=== PATIENT | female | born 1940 | race Caucasian/White ===

== ENCOUNTER 2017-01-26 22:30 | Emergency (ER) | payer MEDICARE, BC ==
[2017-01-26 22:42] VITALS: BP 165/68
[2017-01-26] MEDS ORDERED: Ondansetron 4 MG Tab.DIS PO ONE (23:20)
[2017-01-26] MEDS ORDERED: LORazepam 1 MG Tab PO ONE (23:20)
--- NOTE | 2017-01-26 23:20 | EDM.PDOC ---
ED HPI ALTERED MENTAL STATUS - General Chief Complaint: Neurological Problem Stated Complaint: DIZZY HEADACHE FAST HEART BEAT Time Seen by Provider: 01/26/17 23:12 Source of Information: Reports: Patient History Limitations: Reports: No limitations - History of Present Illness INITIAL COMMENTS - FREE TEXT/NARRATIVE: 76-year-old female attended the ED because she feels quite antsy and jittery inside with reported headache palpitations and slight nausea. Patient takes Ativan usually a half a tablet in the morning and half a tablet at noon and a full tablet at bedtime to aid sleep. She has been using this chronically for many months. She has chronic pain syndrome with pain in her neck and back with previous surgeries to these area. She ran out of Ativan yesterday. Her prescription was supposed to be flown to [facility] but apparently something happened and she was not able to get it filled. She therefore is feeling quite antsy at this time. She complained of palpitations pedal monitor shows heart rate of 56 per minute and sinus. Lungs were clear. She reports she does feel anxious inside and is not able to sleep. She did take a hydrocodone tablet twice today for back pain and this helped the pain but it has not helped her relax enough to sleep. Baseline Mental Status: Reports: alert/oriented Symptom Onset Date: 01/26/17 Symptom Onset Time: 18:00 Timing/Duration: Reports: Hour(s):, Gradual onset Context: Reports: change medication regime. 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: oxygen, IV, narcan, tylenol - Related Data Allergies/ADRs: Allergies Sulfa (Sulfonamide Antibiotics) Allergy (Verified 01/26/17 22:38) Hives Home Meds: Home Meds Acetaminophen [Tylenol] 650 mg PO Q6HR PRN 12/06/14 [History] Estradiol [Vagifem] 10 mcg PO ASDIRECTED 12/06/14 [History] Gabapentin [Neurontin] 600 mg PO BEDTIME 12/06/14 [History] LORazepam 1 mg PO TID 12/06/14 [History] Levothyroxine 75 mcg PO DAILY 12/06/14 [History] Multivitamin [Multivitamins] 1 tab PO DAILY 12/06/14 [History] Simvastatin [Zocor] 10 mg PO DAILY 12/06/14 [History] Ubidecarenone [Co Q-10] 300 mg PO DAILY 12/06/14 [History] Denosumab [Prolia] 60 mg SUBCUT ASDIRECTED 06/01/16 [History] Docusate Sodium [Colace] 100 mg PO DAILY 06/01/16 [History] Erythromycin Base [Erythromycin 0.5% Ophth Oint] 1 dose EYEBOTH BEDTIME [History] Gabapentin [Neurontin] 100 mg PO BEDTIME 06/01/16 [History] Glycerin/Propylene Glycol [Lubricant Eye Drops] 1 drop EYEBOTH ASDIRECTED PRN [History] L.acidoph,Paracasei, B.lactis [Probiotic] 1 each PO DAILY 06/01/16 [History] Meclizine HCl [Antivert] 12.5 mg PO Q12HR PRN #20 tablet 06/01/16 [Rx] Menthol [Icy Hot] 1 spray TOP ASDIRECTED PRN 06/01/16 [History] Non-Formulary Medication [NF Drug] 1 tab PO DAILY 06/01/16 [History] Omeprazole 20 mg PO DAILY 06/01/16 [History] Polyethylene Glycol 3350 [MiraLAX] 17 gm PO DAILY PRN 06/01/16 [History] Sennosides/Docusate Sodium [Senna S Tablet] 1 tab PO BID PRN 06/01/16 [History] rOPINIRole [Requip] 2 mg PO BEDTIME 06/01/16 [History] LORazepam [Ativan] 1 mg PO TID PRN #6 tablet 01/26/17 [Rx] Past Medical History HEENT History: Reports: Cataract, Other (see below) Other HEENT History: dry eyes, eye infections Cardiovascular History: Reports: High cholesterol Gastrointestinal History: Reports: Chronic constipation, Chronic diarrhea Genitourinary History: Reports: Other (see below) Other Genitourinary History: stress incontinence 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 History: Reports: Endometriosis Musculoskeletal History: Reports: Back pain, chronic Neurological History: Reports: Neuropathy, peripheral Psychiatric History: Reports: Anxiety Endocrine/Metabolic History: Reports: Hypothyroidism - Past Surgical History HEENT Surgical History: Reports: Cataract surgery Female Surgical History: Reports: Hysterectomy Neurological Surgical History: Reports: C-Spine (Fusion.), Lumbar spine ( Laminectomy and discectomy.) Social & Family History - Family History Family Medical History: Noncontributory - Tobacco Use Smoking Status *Q: Former Smoker Used Tobacco, but Quit: No Second Hand Smoke Exposure: No - Alcohol Use Days Per Week of Alcohol Use: 0 - Recreational Drug Use Recreational Drug Use: No - Living Situation & Occupation Living situation: Reports: , alone Occupation: retired ED ROS GENERAL - Review of Systems Review Of Systems: See Below Constitutional: Reports: malaise, weakness, fatigue, decreased appetite. Denies : fever, chills, weight loss HEENT: Reports: No symptoms Respiratory: Reports: No Symptoms Cardiovascular: Reports: Palpitations Endocrine: Reports: no symptoms GI/Abdominal: Reports: Constipation, Nausea (Mild at this time). Denies: Abdominal pain : Reports: frequency Musculoskeletal: Reports: neck pain (Chronic neck pain), shoulder pain (Lumbar spine pain with no radiculopathy. Occasionally.), back pain Skin: Reports: no symptoms Neurological: Reports: Headache. Denies: Difficulty Walking, Change in Speech, Gait Disturbance Psychiatric: Reports: Agitation, Anxiety, Depression. Denies: Cravings, Hallucinations (Mild), Homicidal ideation, Mood lability, Suicidal ideation Hematologic/Lymphatic: Reports: no symptoms (Chronically) Immunologic: Reports: no symptoms - Physical Exam Exam: See Below Exam Limited By: No limitations General Appearance: alert, no apparent distress, anxious (Mild at this time) Eye Exam: bilateral eye: normal inspection Throat/Mouth: Normal inspection, Normal lips, Normal oropharynx Head Exam: atraumatic, normocephalic Neck: normal inspection, limited range of motion, tender midline, other (Well healed cervical neck surgical wound.). No: full range of motion, lymphadenopathy (L), lymphadenopathy (R) Respiratory/Chest: lungs clear (Mild tachypnea), normal breath sounds, no accessory muscle use, chest non-tender, respiratory distress Cardiovascular: normal peripheral pulses, regular rate, rhythm (56-58 per minute ), no edema, no gallop, no murmur, bradycardia GI/Abdominal: soft, non tender, no organomegaly, distended (Mildly distended and tympanitic to percussion. Mild aerophagia.) Neuro Exam (Abbreviated): alert, oriented, CN II-XII intact, normal cognition, no motor/sensory deficits Back Exam: paraspinal tenderness (Bilaterally adjacent to L3-4 and 5 facets), other (Has a well-healed scar over the mid lumbar spine.) Extremities: normal inspection, normal range of motion, non-tender, no pedal edema Psychiatric: normal affect, anxious Skin Exam: Warm, Dry, Intact, Normal color, No rash Course - Vital Signs Last Recorded V/S: Last Vital Signs Temp 36.4 C 01/26/17 22:38 Pulse 58 L 01/26/17 22:38 Resp 20 01/26/17 22:38 BP 165/68 H 01/26/17 22:38 Pulse Ox 97 01/26/17 22:38 - Orders/Labs/Meds Meds: Medications Discontinued Medications Generic Name Dose Route Start Last Admin Trade Name Freq PRN Reason Stop Dose Admin Lorazepam 1 mg 01/26/17 23:20 01/26/17 23:26 Ativan PO 01/26/17 23:21 1 mg ONETIME ONE Administration Ondansetron HCl 4 mg 01/26/17 23:20 01/26/17 23:26 Zofran Odt PO 01/26/17 23:21 4 mg ONETIME ONE Administration - Radiology Interpretation Free Text/Narrative:: 76-year-old female attends ED with nonspecific symptoms of headache and feeling quite anxious and that she's experiencing rapid irregular heartbeat. On exam she was found to be in sinus bradycardia at 56 per minute. Mild tachypnea lungs are clear however. Blood pressure is mildly elevated. It history reveals that she ran out of Ativan yesterday and she's been using this chronically for many years. Usually takes anywhere between a half and of milligram in the morning and can't known and full tablet at bedtime to aid sleep. Last level was 24 hours ago. Examination reveals no significant pathology. Suspect current symptoms are that of Ativan withdrawal. Plan Zofran 4 mg sublingually to relieve her nausea and Ativan a milligram per oral. Give her a prescription for 6 tablets in case she cannot get her normal prescription filled tomorrow for white from pharmacy as planned last. Departure - Departure Time of Disposition: 23:26 Disposition: Home, Self-Care 01 Condition: fair Clinical Impression: Benzodiazepine withdrawal Qualifiers: Complication of substance-induced condition: uncomplicated Qualified Code(s): F13.230 - Sedative, hypnotic or anxiolytic dependence with withdrawal, uncomplicated Prescriptions: LORazepam [Ativan] 1 mg PO TID PRN #6 tablet PRN Reason: Anxiety relief Instructions: Benzodiazepine Withdrawal Referrals: Hoang Paez MD [Primary Care Provider] - Forms: ED Department Discharge Additional Instructions: Evaluation in the emergency him tonight in regards to generalized sense of illness with palpitations headache and back discomfort both between the shoulder blades and low back. Feeling very jittery and anxious. History of chronic use of Ativan for control of anxiety disorder and ran out of medicine yesterday. This therefore in 24 hours since last Ativan was taken. No palpitations were identified on monitor in fact heart rate is in the 36-60 range which is normal. Blood pressure itself is also within normal limits. Lungs are clear. Symptoms appear to be that of early withdrawal from benzodiazepines or Ativan. Treatment was therefore Ativan 1 mg given in the ED per oral and Zofran 4 mg for nausea relief. Most trouble home to bed before the medicine starts to work. I did write a prescription for 6 Ativan tablets and tissue do not get your normal prescription filled tomorrow as planned.
== END 2017-01-26 23:50 | disposition home or self-care (01) ==
LOC: JD.ED 22:30
DX: F13.230 Sedative, hypnotic or anxiolytic dependence with withdrawal, uncomplicated (principal); E78.00 Pure hypercholesterolemia, unspecified; F41.9 Anxiety disorder, unspecified; E03.9 Hypothyroidism, unspecified; Z88.2 Allergy status to sulfonamides; Z79.899 Other long term (current) drug therapy; Z90.710 Acquired absence of both cervix and uterus; Z87.891 Personal history of nicotine dependence
CPT/HCPCS: 99284; A9270; 99283

== ENCOUNTER 2020-04-20 17:48 | Emergency (ER) | payer MEDICARE, BC ==
[2020-04-20 18:24] VITALS: BP 149/73; PULSE 60
--- NOTE | 2020-04-20 19:36 | EDM.PDOC ---
ED HPI GENERAL MEDICAL PROBLEM - General Chief Complaint: Gastrointestinal Problem Stated Complaint: DIARRHEA, NO APPETITE AND FATIGUE Time Seen by Provider: 04/20/20 18:55 Source of Information: Reports: Patient History Limitations: Reports: No Limitations - History of Present Illness INITIAL COMMENTS - FREE TEXT/NARRATIVE: Ms. Waggoner is a 80-year-old woman with a history of alternating constipation and diarrhea, who now presents the ED stating that she has had 3 days of loose bowel movements, 2 days of generalized fatigue and decreased appetite, especially today, nausea without emesis since yesterday, and lightheadedness when upright today. She also reports that she had some chest pressure this afternoon that lasted about 3 or 4 afternoons, but resolved after she drank a Coke. She denies prior similar symptoms. No recent fever. The patient states that she had blood drawn at the [facility] yesterday, in preparation for a clinic appointment today, however, she did not feel up to going to her appointment, therefore she called the clinic, and was instructed to come to the ED. Here in the ED, the patient's initial BP is found to be mildly elevated at 149/ 73, otherwise, she is hemodynamically stable, afebrile, saturating 97% on room air. Other than her recurrent constipation and diarrhea, and her current symptoms, the patient denies recent fever, chills, sore throat, ear pain, nasal or sinus congestion, cough, dyspnea, palpitations, vomiting, abdominal pain, urinary symptoms, recent weight gain or weight loss, recent bloody bowel movements or black bowel movements, recent joint aches, headaches, or rashes. The patient's PCP is Dr. Hoang Paez. Her Spinal Surgeon is Dr. Omar Clark. Her Orthopedic Surgeon is Dr. Winnie Ford. - Related Data Allergies Allergy/AdvReac Type Severity Reaction Status Date / Time Sulfa (Sulfonamide Allergy Hives Verified 04/20/20 18:24 Antibiotics) Home Meds: Home Meds Gabapentin [Neurontin] 600 mg PO BEDTIME 12/06/14 [History] Levothyroxine 75 mcg PO DAILY 12/06/14 [History] Simvastatin [Zocor] 10 mg PO DAILY 12/06/14 [History] estradioL [Vagifem] 10 mcg PO ASDIRECTED 12/06/14 [History] Denosumab [Prolia] 60 mg SUBCUT ASDIRECTED 06/01/16 [History] Docusate Sodium [Colace] 100 mg PO DAILY 06/01/16 [History] Erythromycin Base [Erythromycin 0.5% Ophth Oint] 1 dose EYEBOTH BEDTIME 06/01/16 [History] Gabapentin [Neurontin] 100 mg PO BEDTIME 06/01/16 [History] Glycerin/Propylene Glycol [Lubricant Eye Drops] 1 drop EYEBOTH ASDIRECTED PRN 06/01/16 [History] L.acidoph,Paracasei, B.lactis [Probiotic] 1 each PO DAILY 06/01/16 [History] Meclizine HCl [Antivert] 12.5 mg PO Q12HR PRN #20 tablet 06/01/16 [Rx] Menthol [Icy Hot] 1 spray TOP ASDIRECTED PRN 06/01/16 [History] Omeprazole 20 mg PO DAILY 06/01/16 [History] rOPINIRole [Requip] 2 mg PO BEDTIME 06/01/16 [History] Calcium Carbonate/Vitamin D3 [Calcium 600-Vit D3 800 Caplet] 1 tab PO DAILY 07/10/18 [History] LORazepam [Ativan] 1 mg PO TID PRN 07/10/18 [History] Meclizine [Antivert] 25 mg PO TID PRN #20 tab 07/10/18 [Rx] Acetaminophen [Tylenol Arthritis] 650 mg PO BID 04/20/20 [History] Acetaminophen [Tylenol Extra Strength] 500 mg PO DAILY 04/20/20 [History] Ubidecarenone [Co Q-10] 200 mg PO DAILY 04/20/20 [History] Past Medical History HEENT History: Reports: Other (See Below) (Dry eyes) Cardiovascular History: Reports: High Cholesterol, Hypertension Gastrointestinal History: Reports: Colon Polyp, GERD Genitourinary History: Reports: Urinary Incontinence (stress incontinence) 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 History: Reports: Endometriosis Musculoskeletal History: Reports: Back Pain, Chronic (due to arthritis), Osteoarthritis Neurological History: Reports: Neuropathy, Peripheral (due to lumbar stenosis) Psychiatric History: Reports: Anxiety Endocrine/Metabolic History: Reports: Hypothyroidism - Past Surgical History HEENT Surgical History: Reports: Cataract Surgery (bilateral), Oral Surgery (dental extractions) GI Surgical History: Reports: Colonoscopy (x 4 or 5), EGD (x 1) Female Surgical History: Reports: D&C (x 3), Hysterectomy (complete) Neurological Surgical History: Reports: C-Spine (ACDF), Lumbar Spine (laminectomy) Musculoskeletal Surgical History: Reports: Hip Replacement (right) Social & Family History - Family History Family Medical History: Noncontributory - Tobacco Use Smoking Status *Q: Former Smoker Years of Tobacco use: 41 Packs/Tins Daily: 2 Month/Year Tobacco Last Used: Quit 2001 - Caffeine Use Caffeine Use: Reports: None - Alcohol Use Alcohol Use History: Yes Alcohol Use Frequency: Rarely - Recreational Drug Use Recreational Drug Use: No - Living Situation & Occupation Living situation: Reports: , Alone Occupation: Retired ED ROS GENERAL - Review of Systems Review Of Systems: Comprehensive ROS is negative, except as noted in HPI. GI/Abdominal: Reports: Constipation (recurrent), Diarrhea (recurrent) ED EXAM, GENERAL - Physical Exam Exam: See Below Exam Limited By: No Limitations General Appearance: Alert, No Apparent Distress, Thin Eye Exam: Bilateral Eye: EOMI, Normal Inspection Ears: Normal External Exam, Hearing Grossly Normal Nose: Normal Inspection Throat/Mouth: Normal Inspection, Normal Lips, Normal Voice, No Airway Compromise Head: Atraumatic, Normocephalic Neck: Normal Inspection, Full Range of Motion Respiratory/Chest: No Respiratory Distress, Lungs Clear, Normal Breath Sounds, No Accessory Muscle Use Cardiovascular: Normal Peripheral Pulses, No Edema, No Gallop, No JVD, No Murmur, No Rub, Bradycardia (regular) Peripheral Pulses: 3+: Radial (L), Radial (R) GI/Abdominal: Normal Bowel Sounds, Soft, Non-Tender, No Organomegaly, No Distention, No Abnormal Bruit, No Mass (Female) Exam: Deferred Rectal (Female) Exam: Deferred Back Exam: Normal Inspection, Full Range of Motion, NT Extremities: Normal Inspection, Normal Range of Motion, No Pedal Edema, Normal Capillary Refill Neurological: Alert, Oriented, Normal Cognition, No Motor/Sensory Deficits Psychiatric: Normal Affect Skin Exam: Warm, Dry, Intact, Normal Color, No Rash EKG INTERPRETATION EKG Date: 04/20/20 Time: 18:38 Rhythm: Other (Sinus bradycardia) Rate (Beats/Min): 55 Rubicon: LAD-Left Rubicon Deviation P-Wave: Present QRS: Normal ST-T: Normal QT: Normal Comparison: No Change (06/01/2016) Course - Vital Signs Last Recorded V/S: Last Vital Signs Temp 36.2 C 04/20/20 18:18 Pulse 60 04/20/20 18:18 Resp 16 04/20/20 18:18 BP 149/73 H 04/20/20 18:18 Pulse Ox 97 04/20/20 18:18 Orthostatic Blood Pressure [ 169/79 Standing] Orthostatic Blood Pressure [ 148/78 Supine] - Orders/Labs/Meds Orders: Active Orders 24 hr Category Date Time Status EKG 12 Lead [EKG Documentation Completion] [RC] ROUTINE Care 04/20/20 18:38 Active Orthostatic Vital Signs [RC] STAT Care 04/20/20 19:57 Active Labs: Laboratory Tests 04/20/20 04/20/20 04/20/20 Range/Units 19:43 20:12 20:12 WBC 5.90 (3.98-10.04) K/mm3 RBC 3.95 L (3.98-5.22) M/mm3 Hgb 11.7 (11.2-15.7) gm/dl Hct 36.7 (34.1-44.9) % MCV 92.9 (79.4-94.8) fl MCH 29.6 (25.6-32.2) pg MCHC 31.9 L (32.2-35.5) g/dl RDW Std Deviation 45.1 (36.4-46.3) fL Plt Count 232 (182-369) K/mm3 MPV 9.7 (9.4-12.3) fl Neutrophils % (Manual) 64 H (40-60) % Band Neutrophils % 0 (0-10) % Lymphocytes % (Manual) 33 (20-40) % Atypical Lymphs % 0 % Monocytes % (Manual) 3 (2-10) % Eosinophils % (Manual) 0 L (0.7-5.8) % Basophils % (Manual) 0 L (0.1-1.2) Toxic Granulation Platelet Estimate Adequate Plt Morphology Comment Normal Polychromasia 1+ slight RBC Morph Comment Abnormal D-Dimer, Quantitative (0.19-0.50) mg/L Sodium 134 L (136-145) mEq/L Potassium 4.0 (3.5-5.1) mEq/L Chloride 97 L (98-107) mEq/L Carbon Dioxide 30 (21-32) mEq/L Anion Gap 11.0 (5-15) BUN 9 (7-18) mg/dL Creatinine 0.7 (0.55-1.02) mg/dL Est Cr Clr Drug Dosing 53.12 mL/min Estimated GFR (MDRD) > 60 (>60) mL/min BUN/Creatinine Ratio 12.9 L (14-18) Glucose 84 (83-115) mg/dL Calcium 9.5 (8.5-10.1) mg/dL Magnesium 1.8 (1.8-2.4) mg/dl Total Bilirubin 0.4 (0.2-1.0) mg/dL AST 20 (15-37) U/L ALT 22 (14-59) U/L Alkaline Phosphatase 50 (46-116) U/L Troponin I < 0.017 (0.00-0.056) ng/mL Total Protein 7.2 (6.4-8.2) g/dl Albumin 3.9 (3.4-5.0) g/dl Globulin 3.3 gm/dL Albumin/Globulin Ratio 1.2 (1-2) TSH 3rd Generation 0.980 (0.358-3.74) uIU/mL Urine Color Yellow (Yellow) Urine Appearance Clear (Clear) Urine pH 7.0 (5.0-8.0) Ur Specific [place] 1.015 (1.005-1.030) Urine Protein Negative (Negative) Urine Glucose (UA) Negative (Negative) Urine Ketones Negative (Negative) Urine Occult Blood Trace-lysed H (Negative) Urine Nitrite Negative (Negative) Urine Bilirubin Negative (Negative) Urine Urobilinogen 0.2 (0.2-1.0) Ur Leukocyte Esterase Negative (Negative) Urine RBC 0-5 (0-5) /hpf Urine WBC Not seen (0-5) /hpf Ur Squamous Epith Cells 0-5 (0-5) /hpf Urine Bacteria Rare (FEW) /hpf Urine Mucus Not seen (FEW) /hpf //20 Range/Units 20:12 WBC (3.98-10.04) K/mm3 RBC (3.98-5.22) M/mm3 Hgb (11.2-15.7) gm/dl Hct (34.1-44.9) % MCV (79.4-94.8) fl MCH (25.6-32.2) pg MCHC (32.2-35.5) g/dl RDW Std Deviation (36.4-46.3) fL Plt Count (182-369) K/mm3 MPV (9.4-12.3) fl Neutrophils % (Manual) (40-60) % Band Neutrophils % (0-10) % Lymphocytes % (Manual) (20-40) % Atypical Lymphs % % Monocytes % (Manual) (2-10) % Eosinophils % (Manual) (0.7-5.8) % Basophils % (Manual) (0.1-1.2) Toxic Granulation Platelet Estimate Plt Morphology Comment Polychromasia RBC Morph Comment D-Dimer, Quantitative 0.51 H (0.19-0.50) mg/L Sodium (136-145) mEq/L Potassium (3.5-5.1) mEq/L Chloride (98-107) mEq/L Carbon Dioxide (21-32) mEq/L Anion Gap (5-15) BUN (7-18) mg/dL Creatinine (0.55-1.02) mg/dL Est Cr Clr Drug Dosing mL/min Estimated GFR (MDRD) (>60) mL/min BUN/Creatinine Ratio (14-18) Glucose (83-115) mg/dL Calcium (8.5-10.1) mg/dL Magnesium (1.8-2.4) mg/dl Total Bilirubin (0.2-1.0) mg/dL AST (15-37) U/L ALT (14-59) U/L Alkaline Phosphatase (46-116) U/L Troponin I (0.00-0.056) ng/mL Total Protein (6.4-8.2) g/dl Albumin (3.4-5.0) g/dl Globulin gm/dL Albumin/Globulin Ratio (1-2) TSH 3rd Generation (0.358-3.74) uIU/mL Urine Color (Yellow) Urine Appearance (Clear) Urine pH (5.0-8.0) Ur Specific [place] (1.005-1.030) Urine Protein (Negative) Urine Glucose (UA) (Negative) Urine Ketones (Negative) Urine Occult Blood (Negative) Urine Nitrite (Negative) Urine Bilirubin (Negative) Urine Urobilinogen (0.2-1.0) Ur Leukocyte Esterase (Negative) Urine RBC (0-5) /hpf Urine WBC (0-5) /hpf Ur Squamous Epith Cells (0-5) /hpf Urine Bacteria (FEW) /hpf Urine Mucus (FEW) /hpf - Re-Assessments/Exams Free Text/Narrative Re-Assessment/Exam: 04/20/20 19:58 As above, the patient has had 3 days of loose bowel movements, 2 days of fatigue and decreased appetite, nausea without vomiting since yesterday, and lighthead edness when upright today. She also reports having a few hours of chest pressure this afternoon, that resolved after drinking a Coke. Her physical exam is completely unremarkable. An ECG that was obtained at triage shows no abnormalities concerning for ischemia. I have ordered a work-up that includes blood work, a urinalysis, and orthostatics. 04/20/20 21:28 The patient is not orthostatic. 04/20/20 22:01 The patient's CBC is unremarkable. Her CMP is remarkable for sodium slightly depressed at 134, with a chloride of 97, and the remainder of her CMP being unremarkable. Her magnesium level is within normal limits at 1.8. Her TSH is within normal limits at 0.980. Her troponin is undetectably low. Her D-dimer is slightly elevated at 0.51. Her urinalysis is unremarkable. 04/20/20 22:08 Test results discussed with the patient. As above, today's work-up is unremarkable. I suspect that her presenting symptoms are related to her loose bowel movements. Going forward, I recommended that she take [id number] loperamide as needed for her loose bowel movements, but to be judicious with it, as it can easily constipate. I recommended that she stay adequately hydrated. The patient stated that she has an appointment to follow-up with Dr. Paez next 04/28/2020. Departure - Departure Time of Disposition: 22:11 Disposition: Home, Self-Care 01 Condition: Good Clinical Impression: Fatigue, Loose bowel movements, Decreased appetite, Nausea, Lightheadedness - Discharge Information *PRESCRIPTION DRUG MONITORING PROGRAM REVIEWED*: Not Applicable *COPY OF PRESCRIPTION DRUG MONITORING REPORT IN PATIENT RAPHAEL: Not Applicable Instructions: Fatigue, Nausea and Vomiting, Adult, [id number], Dizziness, [id number] Referrals: Hoang Paez MD [Primary Care Provider] - Omar Clark MD [Ordering Only Provider] - Winnie Ford MD [Ordering Only Provider] - Forms: ED Department Discharge Additional Instructions: You were seen in the emergency room for 3 days of loose bowel movements, 2 days of fatigue and decreased appetite, nausea yesterday, and lightheadedness when upright today. Work-up in the ER included blood work, a urinalysis, positional blood pressure checks, and an ECG. Your entire work-up was unremarkable, and does not explain the cause of your symptoms. You are not anemic. No electrolyte abnormalities were found. You have not suffered a heart attack. You do not have a blood clot in your lungs. Your thyroid level is stable. You do not have a urinary tract infection. You are not dehydrated or intravascularly depleted. Based on your history, physical exam, and ER test, the cause of your symptoms is most likely related to your recent loose bowel movements. Going forward, we recommend that you stay adequately hydrated - Gatorade or Powerade are best - and that you treat your loose bowel movements with [id number] loperamide (Imodium), as directed on the label. As discussed, be judicious with loperamide, as it can quickly cause constipation. Follow-up with your PCP, Dr. Hoang Paez, at your previously scheduled appointment on 04/28/2020. If any other problems, please do not hesitate to return to the ER. Sepsis Event Note (ED) - Evaluation Sepsis Screening Result: No Definite Risk - Focused Exam Vital Signs: Vital Signs Temp Pulse Resp BP Pulse Ox 04/20/20 18:18 36.2 C 60 16 149/73 H 97 - My Orders Last 24 Hours: My Active Orders 04/20/20 18:38 EKG 12 Lead [EKG Documentation Completion] [RC] ROUTINE 04/20/20 19:57 Orthostatic Vital Signs [RC] STAT - Assessment/Plan Last 24 Hours: My Active Orders 04/20/20 18:38 EKG 12 Lead [EKG Documentation Completion] [RC] ROUTINE 04/20/20 19:57 Orthostatic Vital Signs [RC] STAT
== END 2020-04-20 22:20 | disposition home or self-care (01) ==
LOC: JD.ED 17:48
DX: R19.7 Diarrhea, unspecified (principal); R42 Dizziness and giddiness; R53.83 Other fatigue; R11.0 Nausea; R63.0 Anorexia; K21.9 Gastro-esophageal reflux disease without esophagitis; I10 Essential (primary) hypertension; G62.9 Polyneuropathy, unspecified; E78.00 Pure hypercholesterolemia, unspecified; E03.9 Hypothyroidism, unspecified; Z87.891 Personal history of nicotine dependence; Z90.710 Acquired absence of both cervix and uterus; Z98.890 Other specified postprocedural states; Z88.2 Allergy status to sulfonamides; Z79.899 Other long term (current) drug therapy
CPT/HCPCS: 36415; 80053; 81001; 83735; 84443; 84484; 85007; 85027; 85379; 93005; 93010; 99282; 99284-25